=== PATIENT | male | born 1960 | race Caucasian/White ===

== ENCOUNTER → 2024-02-05 14:39 | Outpatient (REF) | payer SELFPAY | LOC: HWRAD 14:39 | PROVIDERS: ATTENDING PHYSICIAN Nurse Practitioner | DX: E78.5 Hyperlipidemia, unspecified (principal) | CPT/HCPCS: 75571 ==

== ENCOUNTER → 2024-03-17 13:39 | Outpatient (REF) | payer OTHER, SELFPAY | LOC: HWRCS 13:39 | PROVIDERS: ATTENDING PHYSICIAN Physician Assistant Medical; FAMILY PHYSICIAN Internal Medicine | DX: R94.31 Abnormal electrocardiogram [ECG] [EKG] (principal); Z87.898 Personal history of other specified conditions; R93.1 Abnormal findings on diagnostic imaging of heart and coronary circulation | CPT/HCPCS: 93306 ==

== ENCOUNTER → 2024-03-18 07:47 | Outpatient (REF) | payer OTHER, SELFPAY | LOC: DHCBC/DCA 07:47 | PROVIDERS: ATTENDING PHYSICIAN Physician Assistant Medical; FAMILY PHYSICIAN Internal Medicine | DX: R94.31 Abnormal electrocardiogram [ECG] [EKG] (principal); Z87.898 Personal history of other specified conditions; R93.1 Abnormal findings on diagnostic imaging of heart and coronary circulation | CPT/HCPCS: 78452; 93017; A9500 ==

== ENCOUNTER → 2024-12-09 20:35 | Outpatient (REF) | payer MEDICARE, OTHER, SELFPAY | LOC: MRI 3T 20:35 | PROVIDERS: ATTENDING PHYSICIAN Physician Assistant Surgical; FAMILY PHYSICIAN Internal Medicine | DX: M23.91 Unspecified internal derangement of right knee (principal) | CPT/HCPCS: 73721 ==

== ENCOUNTER → 2024-12-29 10:31 | Outpatient (REF) | payer MEDICARE, OTHER, SELFPAY ==
[2024-12-29 11:59] LABS: Hematocrit 43.4 % (39.0-52.0); Hemoglobin 14.4 g/dL (13.0-18.0); Mean Corp Hgb Conc. 33.2 g/dL (33.0-37.0); Mean Corpuscular Volume 92.9 fL (80.0-94.0); Nucleated Red Blood Cells % 0 % (-); Platelet Count 214 10^3/uL (130-400); Red Cell Dist. Width 12.3 % (11.5-14.5)
[2024-12-29 12:21] LABS: Blood Urea Nitrogen 25 mg/dl (9-20); Calcium 9.0 mg/dl (8.4-10.2); Carbon Dioxide 29 mmol/L (22-30); Chloride 105 mmol/L (98-107); Glucose 83 mg/dl (70-99); Potassium 5.1 mmol/L (3.5-5.1); Sodium 139 mmol/L (135-145); eGFR > 60.00
== END ==
LOC: REG 10:31
PROVIDERS: ATTENDING PHYSICIAN Specialist; FAMILY PHYSICIAN Internal Medicine
DX: Z01.818 Encounter for other preprocedural examination (principal)
CPT/HCPCS: 36415; 80048; 85025; 93005